=== PATIENT | male | born 1955 | race African-American/Black ===

== ENCOUNTER → 2018-07-13 | Outpatient (CLI) | payer BC ==
--- NOTE | 2018-07-13 15:55 | PCVCIMAG ---
APPROVED REPORT Study performed: 07/13/2018 14:31:34 Exam: Stress Echocardiogram Indication: CAD s/p CABG, dyspnea on exertion, parox a flutter Patient Location: Echo lab Stress Nurse: Dilia Gonzalez RN Status: routine Ht: 5 ft 9 in HR: 82 bpm BP: 140/92 mmHg Rhythm: NSR Procedure The patient underwent an Exercise Stress Test using the Semaj Protocol. Blood pressure, heart rate, and EKG were monitored. An Echocardiogram was performed by natural gas technician in four stages in quad fashion. At peak stress, four selected images were obtained and placed side by side with resting images for comparison. Stress Test Details Stress Test: Exercise stress testing was performed using a Semaj protocol. HR Resting HR: 82 bpmMax Heart Rate (APMHR): 155 bpm Max HR Achieved: 176 bpmTarget HR (85% APMHR): 131 bpm % of APMHR: 113 Recovery HR: 115 bpm HR response to stress: Normal HR response to stress BP Resting BP: 140/92 mmHg Max BP: 198/92 mmHg Recovery BP: 158/76 mmHg BP response to stress: Normal blood pressure response to stress. ECG Resting ECG: Sinus Rhythm Stress ECG: Sinus Rhythm ST Change: Normal Maximum ST Deviation: 0 mm Arrhythmia: None Recovery ECG: Sinus Rhythm Recovery ST Change: Normal Recovery ST Deviation: 0 mm Recovery Arrhythmia: None Clinical Reason for Termination: Maximal effort Stress Symptoms: Dyspnea Exercise duration: 10 min 45 sec Highest Stage Achieved: Stage 4: 4.2 mph at 16% grade. Exercise capacity: 13.4 METs Overall Exercise Capacity for Age: Excellent Scale: Active Angina Score: None Stress ECG Conclusion Clinical: Non-ischemic ECG: Non-ischemic Marcano Treadmill Score is 10.0 which is Low risk. Pre-Stress Echo The resting Echocardiogram showed normal left ventricular contractility with an estimated Ejection Fraction of about >55%. Normal wall motion in all segments on baseline images. Post-Stress Echo The stress Echocardiogram showed normal left ventricular contractility with an estimated Ejection Fraction of about 65%. Normal augmentation of wall motion in all segments on post stress images. Clinical No clinical or ECG evidence for ischemia. Conclusion Clinical Response: Non-ischemic Exercise Capacity: Superior Stress ECG Response: Non-ischemic Stress Echo Images: Non-ischemic The left ventricle is normal in size and wall thickness in both the rest and stress images. Normal stress echocardiogram with maximal exercise stress. Other Information Study Quality: Good <Conclusion> The left ventricle is normal in size and wall thickness in both the rest and stress images. Normal stress echocardiogram with maximal exercise stress.
== END | disposition home or self-care (01) ==
LOC: PCVCIMAG 15:17
PROVIDERS: ATTEND Internal Medicine
DX: I25.10 Atherosclerotic heart disease of native coronary artery without angina pectoris (principal); I10 Essential (primary) hypertension; E78.5 Hyperlipidemia, unspecified; E11.9 Type 2 diabetes mellitus without complications; I48.92 Unspecified atrial flutter; R06.09 Other forms of dyspnea
CPT/HCPCS: 93325; 93351